=== PATIENT | female | born 1945 | race American Indian/Alaskan Native ===

== ENCOUNTER 2017-03-25 13:51 | Outpatient (CLI) | payer MEDICARE ==
--- NOTE | 2017-03-25 16:12 | Ultrasound Report ---
ULTRASOUND GUIDED NEEDLE CORE BIOPSY OF A RIGHT AXILLARY LYMPH NODE WITH CLIP PLACEMENT : 03/25/17 13:51:00 CLINICAL: Known right breast cancer and a suspicious right axillary lymph node by PET. Dr. Martin performed a negative needle biopsy of the lymph node and she is concerned about the possibility of a false negative. COMPARISON :None. FINDINGS: The procedure was explained to the patient and her daughter and informed consent was obtained from the daughter. Ultrasound demonstrated the suspicious lymph node with a hydro-grealdine clip adjacent to the lymph node. The skin in the axilla was prepped with Betadine and anesthetized with 1% lidocaine. Ultrasound guided needle core biopsy of the lymph node was performed through a small dermatotomy using 2% lidocaine with epinephrine for deep anesthesia and a 18-gauge Achieve biopsy device. 3 samples were obtained and placed in formalin. A clip was deployed within the lymph node. Hemostasis was achieved with minimal pressure and a sterile dressing was applied. The patient tolerated the procedure well and there were no apparent complications. She was discharged in good condition and was given instructions for wound care and followup. IMPRESSION: Uncomplicated ultrasound-guided needle core biopsy of a right lymph node with clip placement.
== END 2017-03-25 13:52 | disposition home or self-care (01) ==
LOC: SPVWC 13:51
PROVIDERS: ATTEND Surgery
DX: C50.411 Malignant neoplasm of upper-outer quadrant of right female breast (principal)
CPT/HCPCS: 38505

== ENCOUNTER 2017-03-27 08:08 | Observation (INO) | payer MEDICARE ==
[~2017-03-27 08:08] MED LIST: WATER FOR IRRIG STERILE IR ONE
[2017-03-27] MEDS ORDERED: NACL BACTERIOSTATIC INFILTRATI ONE (08:53)
[2017-03-27] MEDS ORDERED: DECADRON IV NR (08:55)
[2017-03-27] MEDS ORDERED: VERSED IV PRN (08:55)
--- NOTE | 2017-03-27 08:56 | Anesthesia Day of Surgery ---
Anesthesia Day of Surgery - Day of Surgery Patient Examined: Yes Patient H&P Reviewed: Yes Patient is NPO: Yes
--- NOTE | 2017-03-27 08:56 | Anesthesia Consultation ---
Anesthesia Consult and Med Hx Date of service: 03/27/17 - Airway Anesthetic Teeth Evaluation: Good ROM Head & Neck: Adequate Mental/Hyoid Distance: Inadequate Mallampati Class: Class III Intubation Access Assessment: Possibly Difficult - Pulmonary Exam CTA: Yes - Cardiac Exam Cardiac Exam: RRR - Pre-Operative Health Status ASA Pre-Surgery Classification: ASA3 Proposed Anesthetic Plan: General Nerve Block: PEC Block - Pulmonary Hx Smoking: Yes ( started in her 20's, quit 20 years ago) Hx Asthma: Yes COPD: Yes - Cardiovascular System Hx Hypertension: Yes (over 20y) Hx Heart Murmur: Yes - Central Nervous System CVA: Yes Hx Psychiatric Problems: Yes (dementia) - Endocrine Hx Hypothyroidism: Yes - Other Systems Hx Alcohol Use: No Hx Substance Use: No Hx Cancer: Yes
[2017-03-27] MEDS ORDERED: CLONIDINE 1,000 MCG/10 ML VIAL EP NR (08:58)
[2017-03-27] MEDS ORDERED: NACL 0.9% 1000 ML 1,000 ML IV SCH (09:00)
[2017-03-27] MEDS ORDERED: MARCAINE 0.5% INFILTRATI NR ×2 (09:00→09:15)
[2017-03-27] MEDS ORDERED: PEPCID IV NR (09:00)
[2017-03-27 09:50] LABS: Anion Gap 20 mmol/L; BUN/Creatinine Ratio 15; Blood Urea Nitrogen 9 mg/dL (7-17); Carbon Dioxide 23 mmol/L (22-30); Chloride 102.4 mmol/L (98-107); Glucose 116 mg/dL (65-100); Potassium 3.9 mmol/L (3.6-5.0); Sodium 141 mmol/L (137-145)
[2017-03-27] MEDS ORDERED: DIPRIVAN 10 MG/ML IV ONE (09:51)
[2017-03-27] MEDS ORDERED: DILAUDID ONE (09:51)
[2017-03-27] MEDS ORDERED: XYLOCAINE 1% 20 mL ONE (09:56)
[2017-03-27] MEDS ORDERED: XYLOCAINE 1% MPF 5 mL INFILTRATI NR (10:00)
[2017-03-27] MEDS ORDERED: ANCEF/STERILE WATER 2 GM/20 ML IV NR (10:00)
[2017-03-27] MEDS ORDERED: NEURONTIN ONE (10:21)
[2017-03-27] MEDS ORDERED: XYLOCAINE MPF 2% ONE (11:06)
[2017-03-27] MEDS ORDERED: ZEMURON IV ONE ×2 (11:06→14:32)
[2017-03-27] MEDS ORDERED: ZOFRAN ONE (11:06)
[2017-03-27] MEDS ORDERED: DECADRON ONE (11:06)
[2017-03-27] MEDS ORDERED: WATER FOR IRRIG STERILE IR ONE (11:31)
[2017-03-27] MEDS ORDERED: ePHEDrine SULFATE ONE (13:24)
[2017-03-27] MEDS ORDERED: NACL 0.9% 1000 ML 1,000 ML ONE (13:29)
--- NOTE | 2017-03-27 15:21 | Mammography Report ---
SPECIMEN RADIOGRAPH RIGHT BREAST: 03/27/17 08:08:00 CLINICAL: Right mastectomy specimen. FINDINGS: A 1.6 cm mass with a biopsy clip is identified within the specimen. IMPRESSION: Known cancer within the mastectomy specimen.
[2017-03-27] MEDS ORDERED: NEOSTIGMINE ONE (15:23)
[2017-03-27] MEDS ORDERED: ROBINUL ONE ×2 (15:24)
[2017-03-27] MEDS ORDERED: TYLENOL PO PRN (16:04)
[2017-03-27] MEDS ORDERED: ZOFRAN IV PRN (16:04)
[2017-03-27] MEDS ORDERED: REGLAN PO PRN (16:04)
[2017-03-27] MEDS ORDERED: PERCOCET 5/325 PO PRN (16:04)
[2017-03-27] MEDS ORDERED: SODIUM CHLORIDE FLUSH SYRINGE 10 ML IV PRN (16:04)
--- NOTE | 2017-03-27 16:04 | Operative Report ---
Operative Report Operative Report: Date of Service: March 27, 2017 Preoperative diagnosis: Right breast cancer of the upper outer quadrant Postoperative diagnosis: Same Procedure: Left total mastectomy and right total mastectomy with sentinel lymph node biopsy Surgeon: Azucena Martin M.D. Asst.: Jacey Kay MD Anesthesia: Gen. Findings: Right breast clip and mass present within right total mastectomy. 5 sentinel lymph nodes identified and negative for malignancy on frozen section of pathology Complications: None Drains: 2 19 Fr Estimated blood loss: Minimal Disposition: PACU in good condition Indications for operative procedure: This is a 71-year-old lady with stage I right breast cancer of the upper outer quadrant, right breast mass at the 10:00 position 5-6 cm from the nipple, IDCA [id number] triple negative. Recommendations were to proceed with right breast conservation and patient wished to proceed with a right total mastectomy and prophylactic left total masectomy. Patient declined plastic reconstructive surgery. Procedure in detail: Anesthesia placed a bilateral pectoral muscle block prior to going to the operating room. The patient was taken to the operating room and was placed supine. Gen. anesthesia was administered. The right nipple was injected with radioisotope. Ultrasoudn was used to geraldine area of known right breast cancer at the 10:00 position 5-6 cm from the nipple. Bilateral breast were prepped and draped in the normal postoperative fashion. Timeout was performed. Typical mastectomy incision markings were made with right mastectomy marking to include known breast cancer at the 10:00 position. Attention was taken towards the left breast first. A skin incision was made with a 10 blade knife and dissection taken down to the subcutaneous tissues. First began raising of the superior flap to the level of the clavicle superiorly and posteriorly to the pectoralis muscle. Followed by raising of the medial flap to the level of the sternum and posteriorly to the pectoralis muscle. Followed by raising of the lateral flap to the level of the latissimus dorsi muscle and taken down posteriorly. Followed by raising of the inferior flap to the level of the inframammary fold taken posterior to the pectoralis muscle. The mastectomy/breast was removed from the pectoralis muscle without incident. The specimen was appropriately marked and sent to pathology. Hemostasis was obtained with the bovie cautery. A 19 [place] HILARIA drain was placed. The subcutaneous tissues were approximated and closed using interrupted 3-0 Vicryl. The skin was then closed using a running 4-0 Monocryl followed by skin affix. Attention was taken towards the right breast. A gamma probe was inserted into the axilla to identify the sentinel lymph node location. A skin incision was made with a 10 blade knife and dissection taken down to the subcutaneous tissues. First began raising of the superior flap to the level of the clavicle superiorly and posteriorly to the pectoralis muscle. Followed by raising of the medial flap to the level of the sternum and posteriorly to the pectoralis muscle. Followed by raising of the lateral flap to the level of the latissimus dorsi muscle and taken down posteriorly. The gamma probe was inserted into the axilla and 5 sentinel lymph nodes were identified, all remaining counts were less than 10% of the highest SLN. First SLN was biopsied node with clip present. Lymph nodes were sent to pathology with findings negative for malignancy noted on frozen section. Then proceeded with raising of the inferior flap to the level of the inframammary fold taken posteriorly to the pectoralis muscle. The mastectomy/breast was removed from the pectoralis muscle without incident. The specimen was appropriately marked and sent to radiology with findings of 1 breast clip and mass present and sent to pathology. Hemostasis was obtained with the bovie cautery. A 19 [place] HILARIA drain was placed. The subcutaneous tissues were approximated and closed using interrupted 3-0 Vicryl. The skin was then closed using a running 4-0 Monocryl followed by skin affix. She was awaken from anesthesia without any complications and transported to PACU in good condition.
[2017-03-27] MEDS ORDERED: MORPHINE IV PRN (16:07)
[2017-03-27] MEDS ORDERED: DUONEB *Not for PRN Use IH (16:08)
[2017-03-27] MEDS ORDERED: D50W (25GM) Syringe IV PRN (16:12)
[2017-03-27] MEDS ORDERED: BENADRYL PO PRN (16:13)
[2017-03-27] MEDS ORDERED: PROVENTIL IH PRN (16:14)
[2017-03-27] MEDS ORDERED: LACTATED RINGERS 1,000 ML IV SCH (17:00)
--- NOTE | 2017-03-27 17:55 | Post Anesthesia Evaluation ---
- Post Anesthesia Evaluation Patient Participated: Yes Airway Patent: Yes Stable Respiratory Function: Yes Nausea/Vomiting: No Temp > 96.8F: Yes Pain Manageable: Yes Adequeate Hydration: Yes Anesthesia Complications: No
[2017-03-27] MEDS: COLACE PO SCH (22:27)
[2017-03-27] MEDS: BROVANA NEBU IH SCH (22:59)
[2017-03-27] MEDS: PULMICORT IH SCH (22:59)
--- NOTE | 2017-03-28 06:41 | Short Stay Summary ---
Short Stay Documentation Date of service: 03/27/17 - History H&P: obtained from office - Allergies and Medications Current Medications: Allergies No Known Allergies Allergy (Verified 03/20/17 14:56) Home Medications Medication Instructions Recorded Confirmed Last Taken Type Fluticasone/Salmeterol [Advair 1 inhalation PO DAILY 03/20/17 03/27/17 03/27/17 06:30 History 250-50 Diskus] Ipratropium/Albuterol Sulfate 1 ampul INHALATION DAILY PRN 03/20/17 03/27/17 06:30 History [DUONEB *Not for PRN Use*] Losartan/Hydrochlorothiazide 1 tab PO DAILY 03/20/17 03/27/17 03/27/17 06:30 History [Losartan-Hctz 50-12.5 mg Tab] Tiotropium [place] [Spiriva] 2 inhalation PO DAILY 03/20/17 03/27/17 03/27/17 06 :30 History HYDROcodone/APAP 5-325 [Girard 1 each PO Q6HR PRN #30 tablet 03/27/17 Unknown Rx 5/325] Insulin Glargine,Hum.rec.anlog 16 units SQ QDAY 03/27/17 03/27/17 03/26/17 14: 00 History [Lantus] Active Medications Acetaminophen (Tylenol) 650 mg PO Q6H PRN PRN Reason: Pain MILD(1-3)/Fever >100.5/CAMAR[place] Albuterol (Proventil) 2.5 mg IH Q4HRT PRN PRN Reason: Shortness Of Breath Arformoterol Tartrate (Brovana Nebu) 15 mcg IH Q12HRT [facility] Last Admin: 03/27/17 22:59 Dose: 15 mcg Budesonide (Pulmicort) 0.5 mg IH Q12HRT [facility] Last Admin: 03/27/17 22:59 Dose: 0.5 mg Dextrose (D50w (25gm) Syringe) 50 ml IV PRN PRN PRN Reason: Hypoglycemia Diphenhydramine HCl (Benadryl) 25 mg PO Q8H PRN PRN Reason: Itching Docusate Sodium (Colace) 100 mg PO BID [facility] Last Admin: 03/27/17 22:27 Dose: 100 mg Sodium Chloride (Nacl 0.9% 1000 Ml) 1,000 mls @ 75 mls/hr IV DIRECT MELONY Last Admin: 03/27/17 09:20 Dose: 75 mls/hr Lactated Ringer's (Lactated Ringers) 1,000 mls @ 125 mls/hr IV DIRECT MELONY Last Admin: 03/27/17 19:00 Dose: 125 mls/hr Insulin Human Regular (Novolin R) 0 units SUB-Q Q6HR MELONY PRN Reason: Protocol Last Admin: 03/28/17 00:14 Dose: Not Given Metoclopramide HCl (Reglan) 10 mg PO Q6H PRN PRN Reason: Nausea And Vomiting Morphine Sulfate (Morphine) 2 mg IV Q4H PRN PRN Reason: Pain, Moderate (4-6) Last Admin: 03/27/17 23:32 Dose: 2 mg Ondansetron HCl (Zofran) 4 mg IV Q8H PRN PRN Reason: N/V unrelieved by Reglan Oxycodone/Acetaminophen (Percocet 5/325) 1 tab PO Q6H PRN PRN Reason: Pain, Moderate (4-6) Sodium Chloride (Sodium Chloride Flush Syringe 10 Ml) 10 ml IV PRN PRN PRN Reason: LINE FLUSH Tiotropium [place] (Spiriva) 2 puff IH DAILY MELONY - Brief post op/procedure progress note Date of procedure: 03/27/17 Pre-op diagnosis: Right breast cancer of the upper outer quadrant Post-op diagnosis: same Procedure: Right total mastectomy with SLNB and left total mastectomy Anesthesia: GETA Findings: bilateral mastectomy; 5 right SLNS and neg for malignancy Surgeon: MARYANN JETER Shingle Grader: POPPY BROUSSARD Estimated blood loss: minimal Pathology: list (bilateral mastectomy and 5 SLNS) Specimen disposition: to lab Condition: stable - Disposition Condition at discharge: Good Disposition: DC/TX-02 SHRT-TRM GEN HOSP IP Short Stay Discharge Plan Activity: other (no heavy lifting) Diet: diabetic Wound: other (may shower in 48 hours; no baths) Follow up with: DHARA RAO MD [Primary Care Provider] - 7 Days MARYANN JETER MD [Staff Physician] - 7 Days Prescriptions: HYDROcodone/APAP 5-325 [Girard 5/325] 1 each PO Q6HR PRN #30 tablet PRN Reason: Pain
--- NOTE | 2017-03-28 06:45 | Progress Note ---
Assessment and Plan This is a 71 year old lady POD#1 bilateral mastectomy and right SLNB. 1. No acute events overnight, pain well controlled. 2. Bilateral chest incisions healing well. 3. HILARIA drain education. 4. OOB to hallway. 5. D/C planning for today. Subjective Date of service: 03/28/17 Principal diagnosis: Right breast cancer of the upper outer quadrant, Stage I Interval history: On 03/27/17 patient underwent a left total mastectomy and right total mastectomy with SLNB Objective - Constitutional Vitals: Vital Signs - 12hr 03/27/17 03/27/17 03/27/17 19:58 22:55 23:08 Temperature 97.7 F 98.3 F Pulse Rate 83 80 Pulse Rate [ 80 Anterior Bilateral Throughout] Pulse Rate [ Left Radial] Respiratory 20 18 Rate Respiratory 18 Rate [Anterior Bilateral Throughout] Blood Pressure 128/76 119/64 O2 Sat by Pulse 95 100 Oximetry 03/27/17 03/27/17 03/28/17 23:11 23:32 00:02 Temperature Pulse Rate Pulse Rate [ 77 Anterior Bilateral Throughout] Pulse Rate [ Left Radial] Respiratory 16 14 Rate Respiratory 20 Rate [Anterior Bilateral Throughout] Blood Pressure O2 Sat by Pulse Oximetry 03/28/17 03/28/17 00:50 05:15 Temperature 98.7 F Pulse Rate 79 Pulse Rate [ Anterior Bilateral Throughout] Pulse Rate [ 85 Left Radial] Respiratory 18 18 Rate Respiratory Rate [Anterior Bilateral Throughout] Blood Pressure 105/56 O2 Sat by Pulse 96 Oximetry General appearance: Present: no acute distress - EENT Eyes: PERRL, EOM intact ENT: hearing intact, clear oral mucosa Ears: bilateral: normal - Neck Neck: supple, normal ROM - Respiratory Respiratory effort: normal Respiratory: bilateral: CTA - Breasts Breasts: other (bilateral incisions clean, dry and intact; no hematoma, skin well perfused; JPs to bulb suction) - Cardiovascular Rhythm: regular Extremities: no ischemia, pulses intact, pulses symmetrical, No edema, normal temperature, normal color, Full ROM - Gastrointestinal General gastrointestinal: Present: soft, non-tender, non-distended Rectal Exam: deferred - Genitourinary Female genitourinary: deferred - Integumentary Integumentary: clear, warm, dry - Musculoskeletal Musculoskeletal: strength equal bilaterally - Neurologic Neurologic: CNII-XII intact, moves all extremities - Psychiatric Psychiatric: appropriate mood/affect, intact judgment & insight, memory intact, cooperative - Labs CBC & Chem 7: 03/27/17 09:00 Labs: Abnormal lab results 03/27/17 03/27/17 03/27/17 Range/Units 09:00 09:14 15:59 Creatinine 0.6 L (0.7-1.2) mg/dL Glucose 116 H (65-100) mg/dL POC Glucose 120 H 179 H (70-105) 03/28/17 Range/Units 00:15 Creatinine (0.7-1.2) mg/dL Glucose (65-100) mg/dL POC Glucose 149 H (70-105)
[2017-03-28] MEDS: PULMICORT IH SCH (08:27)
[2017-03-28] MEDS: BROVANA NEBU IH SCH ×2 (08:29→14:39)
--- NOTE | 2017-03-28 08:53 | Progress Note ---
Subjective Date of service: 03/28/17 Principal diagnosis: Right breast cancer of the upper outer quadrant, Stage I Interval history: 1st POD after bilateral mastectomy Patient is in the bed, comfortable. Pain is well controlled with pain meds. Ambulated well. No nausea or vomiting. No anesthesia complications. Being discharged by the surgeon Objective - Constitutional Vitals: Vital Signs - 12hr 03/27/17 03/27/17 03/27/17 22:55 23:08 23:11 Temperature 98.3 F Pulse Rate 80 Pulse Rate [ 80 77 Anterior Bilateral Throughout] Pulse Rate [ Left Radial] Respiratory 18 Rate Respiratory 18 20 Rate [Anterior Bilateral Throughout] Blood Pressure 119/64 O2 Sat by Pulse 100 Oximetry 03/27/17 03/28/17 03/28/17 23:32 00:02 00:50 Temperature Pulse Rate Pulse Rate [ Anterior Bilateral Throughout] Pulse Rate [ 85 Left Radial] Respiratory 16 14 18 Rate Respiratory Rate [Anterior Bilateral Throughout] Blood Pressure O2 Sat by Pulse Oximetry 03/28/17 03/28/17 03/28/17 05:15 08:29 08:37 Temperature 98.7 F Pulse Rate 79 Pulse Rate [ 74 75 Anterior Bilateral Throughout] Pulse Rate [ Left Radial] Respiratory 18 Rate Respiratory 18 16 Rate [Anterior Bilateral Throughout] Blood Pressure 105/56 O2 Sat by Pulse 96 Oximetry - Labs CBC & Chem 7: 03/27/17 09:00 Labs: Abnormal lab results 03/27/17 03/27/17 03/27/17 Range/Units 09:00 09:14 15:59 Creatinine 0.6 L (0.7-1.2) mg/dL Glucose 116 H (65-100) mg/dL POC Glucose 120 H 179 H (70-105) 03/28/17 03/28/17 Range/Units 00:15 06:51 Creatinine (0.7-1.2) mg/dL Glucose (65-100) mg/dL POC Glucose 149 H 154 H (70-105)
[2017-03-28] MEDS ORDERED: SALMETEROL PO SCH (10:00)
[2017-03-28] MEDS ORDERED: FLUTICASONE PO SCH (10:00)
[2017-03-28] MEDS ORDERED: SPIRIVA IH SCH (10:00)
[2017-03-28] MEDS: COLACE PO SCH (10:31)
[2017-03-28 15:37] VITALS: BP 106/52
== END 2017-03-28 16:10 | disposition home or self-care (01) ==
LOC: OR 08:08 → OB 16:05
PROVIDERS: ADMIT Surgery; ATTEND Surgery
DX: C50.411 Malignant neoplasm of upper-outer quadrant of right female breast (principal); E11.9 Type 2 diabetes mellitus without complications
CPT/HCPCS: 19303; 36415; 38525; 64450; 76098; 78800; 80048; 82962; 88305; 88307; 88309; 88331; 88333; 94640; 96374; A9541; G0378; J0690; J0735; J1100; J1170; J2250; J2270; J2405; J2704; J2710; J7030; J7120; 88361

== ENCOUNTER 2017-05-28 10:24 | Day surgery (SDC) | payer MEDICARE ==
[~2017-05-28 10:24] MED LIST changes: +HEPARIN 10,000 UNITS/10 ML IV ONE; +NACL 0.9% IR ONE; -WATER FOR IRRIG STERILE IR ONE
--- NOTE | 2017-05-28 11:51 | Anesthesia Consultation ---
Anesthesia Consult and Med Hx Date of service: 05/28/17 - Airway Anesthetic Teeth Evaluation: Poor ROM Head & Neck: Inadequate Mental/Hyoid Distance: Inadequate Mallampati Class: Class III Intubation Access Assessment: Difficult - Pulmonary Exam CTA: Yes - Cardiac Exam Cardiac Exam: RRR - Pre-Operative Health Status ASA Pre-Surgery Classification: ASA3 Proposed Anesthetic Plan: Local, MAC - Pulmonary Hx Smoking: Yes ( started in her 20's, quit 20 years ago) Hx Asthma: Yes COPD: Yes - Cardiovascular System Hx Hypertension: Yes (over 20y) Hx Heart Murmur: Yes - Central Nervous System CVA: Yes Hx Psychiatric Problems: Yes (dementia) - Endocrine Hx Hypothyroidism: Yes - Other Systems Hx Alcohol Use: No Hx Substance Use: No Hx Cancer: Yes - Additional Comments Anesthesia Medical History Comments: h/o difficult intubation
--- NOTE | 2017-05-28 11:51 | Anesthesia Day of Surgery ---
Anesthesia Day of Surgery - Day of Surgery Patient Examined: Yes Patient H&P Reviewed: Yes Patient is NPO: Yes
[2017-05-28] MEDS ORDERED: NACL 0.9% 1000 ML 1,000 ML IV SCH (12:00)
[2017-05-28] MEDS ORDERED: ANCEF/STERILE WATER 2 GM/20 ML IV NR (13:00)
[2017-05-28] MEDS ORDERED: VERSED ONE (13:56)
[2017-05-28] MEDS ORDERED: SUBLIMAZE ONE (13:56)
[2017-05-28] MEDS ORDERED: HEPARIN 10,000 UNITS/10 ML ONE (14:06)
[2017-05-28] MEDS ORDERED: NACL 0.9% 100 ML ONE (14:07)
[2017-05-28] MEDS ORDERED: MARCAINE 0.25% INFILTRATI ONE ×3 (14:07→14:44)
[2017-05-28] MEDS ORDERED: XYLOCAINE 1% 20 mL ONE (14:07)
[2017-05-28] MEDS ORDERED: KETALAR ONE (14:41)
[2017-05-28] MEDS ORDERED: XYLOCAINE 1% 20 mL INFILTRATI ONE ×2 (14:44)
[2017-05-28] MEDS ORDERED: HEPARIN 10,000 UNITS/10 ML IV ONE ×2 (14:55→15:25)
[2017-05-28] MEDS ORDERED: NACL 0.9% IV ONE (14:55)
[2017-05-28] MEDS ORDERED: BENADRYL ONE (14:56)
[2017-05-28] MEDS ORDERED: NACL 0.9% IR ONE (15:03)
[2017-05-28] MEDS ORDERED: NORMODYNE IV ONE (15:46)
[2017-05-28] MEDS ORDERED: APRESOLINE ONE (15:47)
--- NOTE | 2017-05-28 15:47 | Fluoroscopy Report ---
AP CHEST: HISTORY: Qcunim-a-Gzni insertion, breast cancer A left IJ Vrrelk-s-Kjwi has been inserted which terminates in the right atrium. There is no evidence for pneumothorax. The lungs are generally clear. Borderline heart size and pulmonary venous structures. The bony structures are within normal limits. IMPRESSION: Left Qhddad-c-Attu placement as described. No evidence for pneumothorax.
--- NOTE | 2017-05-28 15:52 | Short Stay Summary ---
Short Stay Documentation Date of service: 05/28/17 Narrative H&P: 71-year-old female with a history of right breast cancer who follows with Dr. Martin is now patient. Patient is a candidate for chemotherapy and presents for placement of Port-A-Cath. She has no complaints. - History Principal diagnosis: right breast cancer H&P: obtained from office - Allergies and Medications Current Medications: Allergies No Known Allergies Allergy (Verified 05/27/17 13:27) Home Medications Medication Instructions Recorded Confirmed Last Taken Type Fluticasone/Salmeterol [Advair 1 inhalation PO DAILY 03/20/17 05/28/17 05/27/17 08:30 History 250-50 Diskus] Ipratropium/Albuterol Sulfate 1 ampul INHALATION DAILY PRN 03/20/17 05/28/17 08:30 History [DUONEB *Not for PRN Use*] Losartan/Hydrochlorothiazide 1 tab PO DAILY 03/20/17 05/28/17 05/27/17 08:30 History [Losartan-Hctz 50-12.5 mg Tab] Tiotropium [place] [Spiriva] 2 inhalation PO DAILY 03/20/17 05/28/17 05/27/17 08 :30 History HYDROcodone/APAP 5-325 [[place] 1 each PO Q6HR PRN #30 tablet 03/27/17 05/28/17 08:30 Rx 5/325] Insulin Glargine,Hum.rec.anlog 16 units SQ QDAY 03/27/17 05/28/17 05/27/17 08: 30 History [Lantus] Active Medications Cefazolin Sodium (Ancef/Sterile Water 2 Gm/20 Ml) 2 gm IV PREOP NR Stop: 05/28/17 23:59 Sodium Chloride (Nacl 0.9% 1000 Ml) 1,000 mls @ 75 mls/hr IV DIRECT MELONY Last Admin: 05/28/17 12:10 Dose: 75 mls/hr - Brief post op/procedure progress note Date of procedure: 05/28/17 Pre-op diagnosis: right breast cancer Post-op diagnosis: same Procedure: Left IJ Port-A-Cath insertion Anesthesia: MAC, local Findings: Good placement of Port-A-Cath, confirmed with postoperative chest x-ray. No pneumothorax. Surgeon: POPPY BROUSSARD Estimated blood loss: minimal Pathology: none Condition: stable - Hospital course Hospital course: The patient was recovered in the PACU and discharged home with family when criteria was met. - Disposition Condition at discharge: Good Disposition: DC-01 TO HOME OR SELFCARE - Discharge Diagnoses (1) Breast cancer, right Status: Acute Short Stay Discharge Plan Activity: no restrictions Diet: diabetic Wound: open to air, other (May shower tomorrow. Pat Incisions dry. May use soap and water. Do not scrub incisions. Do not submerge incisions and baths, hot tubs, pools.) Additional Instructions: Call surgeons office if you have fevers greater than 100.4, redness/swelling around the incision, drainage from the incision. Follow up with: LG HUFFMAN MD [Primary Care Provider] - 7 Days POPPY BROUSSARD DO [Staff Physician] - 14 Days
--- NOTE | 2017-05-28 15:55 | Operative Report ---
Operative Report Operative Report: Date of operation: 05/28/17 Reoperative diagnosis: Right breast cancer Postoperative diagnosis: Same as above Procedure performed: Placement of left internal jugular Port-A-Cath Surgeon: Michael Bearden DO Anesthesia: MAC, local Findings: On intraoperative CXR - good placement of port and no PTX EBL: <10cc Complications: none Disposition: stable to PACU HPI and indication: Patient is a 71-year-old female who has right-sided breast cancer status post bilateral mastectomy by Dr. Martin. The patient is seen by collagen as an outpatient and deemed a candidate for chemotherapy. All of the risks associated with the procedure were discussed with the patient and her daughter/POA including but not limited to pneumothorax, infection, bleeding, malpositioned port, injury to other structures. They understand and all questions were answered. Consent was signed and placed on chart. Procedure in detail: The patient was identified in the preoperative area, taken back to operating room, placed on operating table in supine position. After anesthesia was induced both arms were tucked and upper chest and neck were prepped and draped in usual sterile fashion. A timeout was performed. The was placed in Trendelenburg position. Local anesthetic was infiltrated into the skin at the intended puncture site. The subclavian vein on the left was identified using ultrasound guidance, however was small and collapsed with every respiration and therefore the left internal jugular vein was chosen for access. The left internal jugular vein was visualized with ultrasound guidance and was collapsible. It was accessed on the first stick. There was return of dark red, nonpulsatile blood. A glide wire was threaded under fluoroscopy without resistance and positioning confirmed. The needle was then removed. Using a 15 blade, an incision was made in the LEFT upper chest and dissection carried down through the skin and subcutaneous tissue using Bovie electrocautery. Hemostasis was achieved along the way. A pocket for the port was then created bluntly and with electrocautery. The catheter was flushed and tunneled from the pocket to the wire. A breakaway catheter/dilator sheath then inserted over the wire under fluoroscopy, and the wire and dilator removed. The catheter was then inserted through the breakaway catheter which was then removed. The catheter sat flush under the skin. Using continuous fluoroscopy, the catheter was pulled back until the tip was visualized in the right atrium. The catheter was then cut to size and the port attached in the usual fashion. The port was then sutured into place to the pre-pectoral fascia using 2-0 Vicryl interrupted sutures. The wound was irrigated and hemostasis ensured. The port was tested with heparinized saline and there was return of blood and it flushed easily. The port was then instilled with 3000 units of heparin. The deep dermal layer was then closed with interrupted 3-0 Vicryl stitches. The skin incisions were closed with 4-0 Monocryl subcuticular stitches and skin glue. Intraoperative chest x-ray did show good positioning of the port, without evidence of pneumothorax At the end of the case, all sponge, instrument, sharp counts were correct 2. The patient was awoken from anesthesia and taken to PACU in stable condition. The patient's daughter and son were updated at the end of the case.
[2017-05-28 16:18] VITALS: BP 112/69
--- NOTE | 2017-05-28 16:30 | Post Anesthesia Evaluation ---
- Post Anesthesia Evaluation Patient Participated: Yes Airway Patent: Yes Stable Respiratory Function: Yes Nausea/Vomiting: No Temp > 96.8F: Yes Pain Manageable: Yes Adequeate Hydration: Yes Anesthesia Complications: No Block Receding Appropriately: Not Applicable Patient on Ventilator: No
== END 2017-05-28 16:51 | disposition home or self-care (01) ==
LOC: OR 10:24
PROVIDERS: ATTEND Surgery
DX: C50.911 Malignant neoplasm of unspecified site of right female breast (principal); E11.9 Type 2 diabetes mellitus without complications; I10 Essential (primary) hypertension; J44.9 Chronic obstructive pulmonary disease, unspecified; E03.9 Hypothyroidism, unspecified; F03.90 Unspecified dementia, unspecified severity, without behavioral disturbance, psychotic disturbance, mood disturbance, and anxiety; Z86.73 Personal history of transient ischemic attack (TIA), and cerebral infarction without residual deficits; Z90.13 Acquired absence of bilateral breasts and nipples; Z87.891 Personal history of nicotine dependence; Z91.048 Other nonmedicinal substance allergy status; Z90.49 Acquired absence of other specified parts of digestive tract; Z98.890 Other specified postprocedural states; Z90.710 Acquired absence of both cervix and uterus
CPT/HCPCS: 36415; 36561; 77001; 82962; 84132; J0360; J0690; J1200; J1644; J2250; J3010; J7030; C1769; C1788